=== PATIENT | female | born 1935 | race Two or more races ===

== ENCOUNTER 2021-03-11 12:44 | Emergency (ER) | payer OTHER ==
[~2021-03-11] VITALS: Ht 167.6 cm; Wt 59.9 kg
[2021-03-11] MEDS ORDERED: SODIUM CHLORIDE 0.9% 500 ML IV ONE (13:00)
[2021-03-11 14:28] LABS: Basophils # (auto) 0.1 10 ^3/uL (0-0.2); Basophils % (auto) 1.3 % (0.0-2.0); Eosinophils # (auto) 0.1 10 ^3/uL (0-0.8); Eosinophils % (auto) 1.3 % (0.0-7.0); Hematocrit 36.2 % (36.0-46.0); Hemoglobin 12.9 g/dL (12.2-16.2); Lymphocytes # (auto) 1.8 10 ^3/uL (0.4-5.4); Lymphocytes % (auto) 34.3 % (10.0-50.0); Mean Corpuscular Hemoglobin 31.6 pg (28.0-32.0); Mean Corpuscular Hgb Conc. 35.5 g/dL (32.0-36.0); Mean Corpuscular Volume 88.9 fL (80.0-100.0); Monocytes # (auto) 0.5 10 ^3/uL (0-1.3); Monocytes % (auto) 9.2 % (0.0-12.0); Neutrophils # (auto) 2.9 10 ^3/uL (1.6-8.6); Neutrophils % (auto) 53.9 % (37.0-80.0); Nucleated Red Blood Cells % 0.1 %; Platelet Count (auto) 261 10^3/uL (140-450); Red Blood Cells 4.07 10^6/uL (4.0-5.20); Red Cell Distribution Width 15.7 % (11.8-14.3); White Blood Cell 5.4 10^3/uL (4.4-10.8)
[2021-03-11 14:48] LABS: Albumin 3.4 g/dL (3.4-5.0); BUN/Creatinine Ratio 29.7; Calcium 8.6 mg/dL (8.5-10.1); Potassium 3.9 mmol/L (3.5-5.1)
[2021-03-11 14:51] LABS: Bilirubin, Total 0.4 mg/dL (0.2-1.0); Total Protein 7.8 g/dL (6.4-8.2)
[2021-03-11 19:59] VITALS: BP 136/71
== END 2021-03-11 22:32 | disposition hospice, inpatient (51) ==
LOC: ER 12:44 → EDBD 12:44 → ER 22:32
DX: R53.1 Weakness (principal); I10 Essential (primary) hypertension; R73.9 Hyperglycemia, unspecified; F41.9 Anxiety disorder, unspecified; R51.9 Headache, unspecified; E78.5 Hyperlipidemia, unspecified; Z90.49 Acquired absence of other specified parts of digestive tract
CPT/HCPCS: 36415; 70450; 80053; 84484; 85025; 85049; 93005; 96360; 96361

== ENCOUNTER 2021-09-23 17:17 | Emergency (ER) | payer MEDICARE, OTHER ==
[~2021-09-23] VITALS: Ht 170.2 cm; Wt 72.6 kg
[2021-09-24 11:38] VITALS: BP 127/75
[2021-09-24 13:21] LABS: Basophils # (auto) 0 10 ^3/uL (0-0.2); Basophils % (auto) 0.6 % (0.0-2.0); Eosinophils # (auto) 0 10 ^3/uL (0-0.8); Eosinophils % (auto) 0.4 % (0.0-7.0); Hematocrit 40.2 % (36.0-46.0); Hemoglobin 13.5 g/dL (12.2-16.2); Lymphocytes # (auto) 1.4 10 ^3/uL (0.4-5.4); Lymphocytes % (auto) 21.9 % (10.0-50.0); Mean Corpuscular Hemoglobin 31.4 pg (28.0-32.0); Mean Corpuscular Hgb Conc. 33.4 g/dL (32.0-36.0); Mean Corpuscular Volume 94.1 fL (80.0-100.0); Monocytes # (auto) 0.7 10 ^3/uL (0-1.3); Neutrophils # (auto) 4.4 10 ^3/uL (1.6-8.6); Neutrophils % (auto) 67.1 % (37.0-80.0); Red Blood Cells 4.28 10^6/uL (4.0-5.20); Red Cell Distribution Width 14.4 % (11.8-14.3); White Blood Cell 6.5 10^3/uL (4.4-10.8)
[2021-09-24 13:38] LABS: Albumin 4.1 g/dL (3.4-5.0); Calcium 9.2 mg/dL (8.5-10.1); Potassium 3.9 mmol/L (3.5-5.1)
[2021-09-24 13:44] LABS: Bilirubin, Total 0.6 mg/dL (0.2-1.0); Total Protein 8.7 g/dL (6.4-8.2)
[2021-09-24] MEDS ORDERED: CEPH-322 PO (14:58)
== END 2021-09-24 18:57 ==
LOC: EDBD 17:17 → ER 17:17 → EDUNIT# 17:17 → ER 09-24 18:57
DX: E11.621 Type 2 diabetes mellitus with foot ulcer (principal); L97.529 Non-pressure chronic ulcer of other part of left foot with unspecified severity; E78.5 Hyperlipidemia, unspecified; I10 Essential (primary) hypertension; Z90.49 Acquired absence of other specified parts of digestive tract; Z88.6 Allergy status to analgesic agent
CPT/HCPCS: 36415; 71045; 80053; 83880; 84484; 85025; 93005; 93970

== ENCOUNTER 2021-09-29 17:55 | Emergency (ER) | payer MEDICARE, OTHER ==
[~2021-09-29] VITALS: Ht 165.1 cm; Wt 54.9 kg
[~2021-09-29 17:55] MED LIST: CEPH-322 PO
[2021-09-29 20:41] LABS: Basophils # (auto) 0 10 ^3/uL (0-0.2); Basophils % (auto) 0.7 % (0.0-2.0); Eosinophils # (auto) 0 10 ^3/uL (0-0.8); Eosinophils % (auto) 0.3 % (0.0-7.0); Hematocrit 37.2 % (36.0-46.0); Hemoglobin 12.2 g/dL (12.2-16.2); Lymphocytes # (auto) 1.4 10 ^3/uL (0.4-5.4); Lymphocytes % (auto) 37.3 % (10.0-50.0); Mean Corpuscular Hemoglobin 30.9 pg (28.0-32.0); Mean Corpuscular Hgb Conc. 32.8 g/dL (32.0-36.0); Monocytes # (auto) 0.7 10 ^3/uL (0-1.3); Monocytes % (auto) 18.5 % (0.0-12.0); Neutrophils # (auto) 1.6 10 ^3/uL (1.6-8.6); Neutrophils % (auto) 43.2 % (37.0-80.0); Nucleated Red Blood Cells % 0.2 %; Red Blood Cells 3.95 10^6/uL (4.0-5.20); Red Cell Distribution Width 14.1 % (11.8-14.3); White Blood Cell 3.8 10^3/uL (4.4-10.8)
[2021-09-29 21:02] LABS: Albumin 3.1 g/dL (3.4-5.0); Calcium 8.2 mg/dL (8.5-10.1); Magnesium 2.4 mg/dL (1.6-2.6); Potassium 3.5 mmol/L (3.5-5.1)
[2021-09-29 21:09] LABS: BUN/Creatinine Ratio 14.1; Bilirubin, Total 0.3 mg/dL (0.2-1.0); Total Protein 6.7 g/dL (6.4-8.2)
[2021-09-30 02:19] LABS: Urine Bacteria NONE SEEN /hpf (None Seen); Urine Blood Negative /uL (Negative); Urine Specific Gravity 1.009 (1.001-1.035); Urine WBC 1 /hpf (0 - 5)
[2021-09-30 03:51] VITALS: BP 177/77
[2021-09-30] MEDS ORDERED: ALUM & MAG HYDROX-SIMETH LIQ(MAALOX) 30 ML PO ONE (04:30)
== END 2021-09-30 10:38 | disposition home or self-care (01) ==
LOC: ER 17:55 → EDUNIT# 17:55 → EDBD 17:55 → EDSEX 17:55 → ER 09-30 10:38
DX: R50.9 Fever, unspecified (principal); B34.9 Viral infection, unspecified; E11.9 Type 2 diabetes mellitus without complications; E78.5 Hyperlipidemia, unspecified; I10 Essential (primary) hypertension; Z20.822 Contact with and (suspected) exposure to COVID-19; Z90.49 Acquired absence of other specified parts of digestive tract
CPT/HCPCS: 36415; 71045; 80053; 81001; 83605; 83735; 84484; 85025; 87040; 87426; 93005

== ENCOUNTER 2022-03-12 07:20 | Day surgery (SDC) | payer MEDICARE, MEDICAID ==
[2022-03-11 13:16] LABS: Basophils # (auto) 0.1 10 ^3/uL (0-0.2); Basophils % (auto) 0.8 % (0.0-2.0); Eosinophils # (auto) 0.1 10 ^3/uL (0-0.8); Eosinophils % (auto) 1.4 % (0.0-7.0); Hematocrit 37.7 % (36.0-46.0); Hemoglobin 12.3 g/dL (12.2-16.2); Lymphocytes # (auto) 2.3 10 ^3/uL (0.4-5.4); Lymphocytes % (auto) 34.9 % (10.0-50.0); Mean Corpuscular Hemoglobin 28.7 pg (28.0-32.0); Mean Corpuscular Hgb Conc. 32.5 g/dL (32.0-36.0); Mean Corpuscular Volume 88.2 fL (80.0-100.0); Monocytes # (auto) 0.8 10 ^3/uL (0-1.3); Monocytes % (auto) 12.4 % (0.0-12.0); Neutrophils # (auto) 3.4 10 ^3/uL (1.6-8.6); Neutrophils % (auto) 50.5 % (37.0-80.0); Red Blood Cells 4.28 10^6/uL (4.0-5.20); Red Cell Distribution Width 15.8 % (11.8-14.3); Urine Bacteria NONE SEEN /hpf (None Seen); Urine Blood Negative /uL (Negative); Urine Hyaline Cast FEW /lpf (0 - 2); Urine Mucus FEW (None Seen); Urine Specific Gravity 1.032 (1.001-1.035); Urine WBC 3 /hpf (0 - 5); White Blood Cell 6.7 10^3/uL (4.4-10.8)
[2022-03-11 13:25] LABS: INR 1.14 (0.9-1.15); Partial Thromboplastin Time 26.2 sec (23.6-33.0)
[2022-03-11 13:36] LABS: Albumin 3.5 g/dL (3.4-5.0); Calcium 8.7 mg/dL (8.5-10.1); Potassium 4.2 mmol/L (3.5-5.1)
[2022-03-11 13:39] LABS: Bilirubin, Total 0.4 mg/dL (0.2-1.0); Total Protein 8.3 g/dL (6.4-8.2)
[~2022-03-12] VITALS: Ht 165.1 cm; Wt 54.4 kg
[2022-03-12] MEDS ORDERED: ceFAZolin 1GM/50ML 100 ML IV ONE (09:22)
[2022-03-12] MEDS ORDERED: ROPIVACAINE 0.5% (5MG/ML) 20ML AMPULE IJ ONE (09:49)
[2022-03-12] MEDS ORDERED: ceFAZolin 1GM VL ONE (09:49)
[2022-03-12] MEDS ORDERED: fentaNYL CITRATE 100 MCG/2 ML VL ONE (09:51)
[2022-03-12] MEDS ORDERED: MIDAZOLAM HCL 2MG/2ML 2ml VIAL (1mg/ml) ONE (09:51)
[2022-03-12] MEDS ORDERED: MEPERIDINE HCL (25 MG/ML) 1ML VIAL ONE (09:51)
[2022-03-12] MEDS ORDERED: ONDANSETRON HCL 4 MG/2 ML VIAL IV PRN (10:00)
[2022-03-12] MEDS ORDERED: HYDROmorphone HCL 2 MG/ML VL/or syr IV PRN (10:00)
[2022-03-12] MEDS ORDERED: MORPHINE SULFATE 4 MG/ML SYR/VIAL IV PRN (10:00)
[2022-03-12] MEDS ORDERED: MIDAZOLAM HCL 2MG/2ML 2ml VIAL (1mg/ml) IV PRN (10:00)
[2022-03-12] MEDS ORDERED: ePHEDrine SULFATE 50 MG/ML AMP IV PRN (10:00)
[2022-03-12] MEDS ORDERED: LABETALOL HCL 5 MG/ML 4ML SYRINGE IV PRN (10:00)
[2022-03-12] MEDS ORDERED: hydrALAZINE HCL 20 MG/ML VL IV PRN (10:00)
[2022-03-12] MEDS ORDERED: DexAMETHasone SOD PHOS 10MG/1ML VIAL INJ ONE (10:10)
[2022-03-12] MEDS ORDERED: PROPOFOL 10 MG/ML 20 ML IV ONE (10:19)
[2022-03-12 10:50] VITALS: BP 141/73
== END 2022-03-12 11:15 | disposition home or self-care (01) ==
LOC: SUR 07:20
PROVIDERS: ATTEND Podiatrist Foot & Ankle Surgery
DX: M20.62 Acquired deformities of toe(s), unspecified, left foot (principal); M12.272 Villonodular synovitis (pigmented), left ankle and foot; M79.89 Other specified soft tissue disorders; I10 Essential (primary) hypertension; I25.10 Atherosclerotic heart disease of native coronary artery without angina pectoris; F32.A Depression, unspecified; F41.9 Anxiety disorder, unspecified; Z98.41 Cataract extraction status, right eye; Z98.890 Other specified postprocedural states; Z20.822 Contact with and (suspected) exposure to COVID-19; Z88.5 Allergy status to narcotic agent
CPT/HCPCS: 28825; 36415; 80053; 81001; 85025; 85610; 85730; 88305; 88311; J0690; J1100; J2175; J2250; J2704; J2795; J3010; U0003

== ENCOUNTER 2022-03-23 11:30 | Inpatient (IN) | payer MEDICARE, MEDICAID ==
[~2022-03-23] VITALS: Ht 160 cm; Wt 57.9 kg
[2022-03-23 13:09] LABS: Basophils # (auto) 0.1 10 ^3/uL (0-0.2); Basophils % (auto) 0.9 % (0.0-2.0); Eosinophils # (auto) 0.1 10 ^3/uL (0-0.8); Eosinophils % (auto) 1.9 % (0.0-7.0); Hematocrit 37.8 % (36.0-46.0); Hemoglobin 12.3 g/dL (12.2-16.2); Lymphocytes # (auto) 1.5 10 ^3/uL (0.4-5.4); Lymphocytes % (auto) 23.6 % (10.0-50.0); Mean Corpuscular Hemoglobin 28.8 pg (28.0-32.0); Mean Corpuscular Hgb Conc. 32.6 g/dL (32.0-36.0); Mean Corpuscular Volume 88.3 fL (80.0-100.0); Monocytes # (auto) 0.7 10 ^3/uL (0-1.3); Monocytes % (auto) 11.4 % (0.0-12.0); Neutrophils # (auto) 3.8 10 ^3/uL (1.6-8.6); Neutrophils % (auto) 62.2 % (37.0-80.0); Red Blood Cells 4.28 10^6/uL (4.0-5.20); Red Cell Distribution Width 15.9 % (11.8-14.3); White Blood Cell 6.2 10^3/uL (4.4-10.8)
[2022-03-23 13:28] LABS: Albumin 3.5 g/dL (3.4-5.0); Calcium 8.5 mg/dL (8.5-10.1)
[2022-03-23 13:30] LABS: BUN/Creatinine Ratio 25.8
[2022-03-23 13:33] LABS: Bilirubin, Total 0.4 mg/dL (0.2-1.0); Total Protein 7.9 g/dL (6.4-8.2)
[2022-03-23] MEDS ORDERED: DOCUSATE SOD 100 MG CAP PO PRN (16:15)
[2022-03-23] MEDS ORDERED: ONDANSETRON HCL 4 MG/2 ML VIAL IV PRN (16:15)
[2022-03-23] MEDS: SODIUM CHLOR 0.9% PF (SALINE LOCK) 10ML VIAL/SYR IV SCH (23:19)
[2022-03-24] MEDS ORDERED: HYDROcodone-ACET 5/325MG TAB PO ONE (06:00)
[2022-03-24] MEDS: SODIUM CHLOR 0.9% PF (SALINE LOCK) 10ML VIAL/SYR IV SCH ×3 (06:04→21:03)
[2022-03-24 10:39] LABS: Urine Bacteria NONE SEEN /hpf (None Seen); Urine Blood Negative /uL (Negative); Urine Mucus FEW (None Seen); Urine Specific Gravity 1.019 (1.001-1.035); Urine WBC 1 /hpf (0 - 5)
[2022-03-24] MEDS: ACETAMINOPHEN 325 MG TAB PO PRN ×2 (10:40→20:26)
[2022-03-24] MEDS ORDERED: VENL1TAB99 PO (16:42)
[2022-03-24] MEDS ORDERED: ALEN70TA74 PO (16:42)
[2022-03-24] MEDS ORDERED: SIMV-8 PO (16:42)
[2022-03-24] MEDS ORDERED: AMLO-496 PO (16:42)
[2022-03-24] MEDS ORDERED: METO25TA93 PO (16:42)
[2022-03-24] MEDS ORDERED: OMEP-445 (16:42)
[2022-03-24] MEDS ORDERED: MULT1TAB95 PO (16:47)
[2022-03-24] MEDS ORDERED: DOCU1CAP PO (16:49)
[2022-03-24] MEDS ORDERED: HYDR-3682 PO (16:50)
[2022-03-24] MEDS ORDERED: HYDR-4902 PO (16:51)
[2022-03-24] MEDS ORDERED: ACET1CAP14 PO (16:52)
[2022-03-24 17:29] VITALS: BP 131/93
[2022-03-24 20:00] VITALS: BP 139/61
[2022-03-24 22:00] VITALS: BP 139/61
[2022-03-25 05:00] VITALS: BP 147/68
[2022-03-25] MEDS: SODIUM CHLOR 0.9% PF (SALINE LOCK) 10ML VIAL/SYR IV SCH ×3 (05:32→21:29)
[2022-03-25 09:00] VITALS: BP 146/79
[2022-03-25] MEDS: ACETAMINOPHEN 325 MG TAB PO PRN (11:14)
[2022-03-25 13:00] VITALS: BP 144/97
[2022-03-25 13:39] LABS: Basophils # (auto) 0 10 ^3/uL (0-0.2); Basophils % (auto) 0.7 % (0.0-2.0); Eosinophils # (auto) 0.1 10 ^3/uL (0-0.8); Eosinophils % (auto) 2.1 % (0.0-7.0); Hematocrit 37.6 % (36.0-46.0); Lymphocytes # (auto) 1.3 10 ^3/uL (0.4-5.4); Lymphocytes % (auto) 23.9 % (10.0-50.0); Mean Corpuscular Hemoglobin 28.3 pg (28.0-32.0); Mean Corpuscular Volume 88.4 fL (80.0-100.0); Monocytes # (auto) 0.5 10 ^3/uL (0-1.3); Neutrophils # (auto) 3.5 10 ^3/uL (1.6-8.6); Neutrophils % (auto) 64.3 % (37.0-80.0); Red Blood Cells 4.25 10^6/uL (4.0-5.20); Red Cell Distribution Width 16.3 % (11.8-14.3); White Blood Cell 5.5 10^3/uL (4.4-10.8)
[2022-03-25 13:55] LABS: Calcium 8.9 mg/dL (8.5-10.1); Potassium 4.2 mmol/L (3.5-5.1)
[2022-03-25 13:57] LABS: BUN/Creatinine Ratio 26.2
[2022-03-25] MEDS ORDERED: PATIENTS OWN MEDICATION (Hydroxyzine Hcl 1 TAB) PO SCH (14:00)
[2022-03-25 14:13] LABS: Bilirubin, Total 0.4 mg/dL (0.2-1.0); CRP High Sensitivity 0.34 mg/dL (< 0.3); Phosphorus 3.4 mg/dL (2.5-4.90)
[2022-03-25] MEDS: HYDROcodone-ACET 5/325MG TAB PO PRN (16:02)
[2022-03-25] MEDS: hydrOXYzine 25 MG TAB or CAP PO SCH ×2 (16:02→21:29)
[2022-03-25 16:44] VITALS: BP 109/64
[2022-03-25 20:00] VITALS: BP 112/64
[2022-03-25] MEDS: ATORVASTATIN 20 MG TAB PO SCH (21:29)
[2022-03-25] MEDS: DOCUSATE SOD 100 MG CAP PO SCH (21:29)
[2022-03-25] MEDS: METOPROLOL TARTRATE 25 MG TAB PO SCH (21:46)
[2022-03-25 22:00] VITALS: BP 112/64
[2022-03-26 05:00] VITALS: BP 135/72
[2022-03-26] MEDS: SODIUM CHLOR 0.9% PF (SALINE LOCK) 10ML VIAL/SYR IV SCH ×3 (05:57→22:04)
[2022-03-26] MEDS: hydrOXYzine 25 MG TAB or CAP PO SCH ×3 (05:57→22:05)
[2022-03-26] MEDS: ONDANSETRON HCL 4 MG/2 ML VIAL IV PRN ×3 (08:36→22:54)
[2022-03-26 08:43] VITALS: BP 108/75
[2022-03-26] MEDS: DOCUSATE SOD 100 MG CAP PO SCH (09:52)
[2022-03-26] MEDS: HYDROcodone-ACET 5/325MG TAB PO PRN ×3 (09:52→22:54)
[2022-03-26] MEDS: METOPROLOL TARTRATE 25 MG TAB PO SCH ×2 (09:53→22:04)
[2022-03-26] MEDS: MULTIPLE VITAMIN TAB PO SCH (09:53)
[2022-03-26] MEDS: amLODIPine BESYLATE 5 MG TAB PO SCH (09:53)
[2022-03-26] MEDS ORDERED: PATIENTS OWN MEDICATION (Amlodipine Besylate 1 TAB) PO SCH (10:00)
[2022-03-26 12:38] VITALS: BP 163/79
[2022-03-26] MEDS ORDERED: MAGNESIUM CITRATE SOLUTION 300 ML BTL PO ONE (14:30)
[2022-03-26] MEDS ORDERED: LACTULOSE 20Gm/30ML SOLN PO PRN (14:30)
[2022-03-26 16:26] VITALS: BP 93/69
[2022-03-26 22:00] VITALS: BP 130/69
[2022-03-26] MEDS: ATORVASTATIN 20 MG TAB PO SCH (22:04)
[2022-03-27] VITALS (7 sets, daily range): BP systolic 105–138; BP diastolic 54–78
[2022-03-27] MEDS: ONDANSETRON HCL 4 MG/2 ML VIAL IV PRN ×3 (03:31→18:22)
[2022-03-27] MEDS: SODIUM CHLOR 0.9% PF (SALINE LOCK) 10ML VIAL/SYR IV SCH ×3 (05:56→21:52)
[2022-03-27] MEDS: hydrOXYzine 25 MG TAB or CAP PO SCH ×3 (05:56→21:54)
[2022-03-27] MEDS: MAGNESIUM OXIDE 400 MG TAB PO SCH (09:51)
[2022-03-27] MEDS: METOPROLOL TARTRATE 25 MG TAB PO SCH ×2 (09:51→21:53)
[2022-03-27] MEDS: MULTIPLE VITAMIN TAB PO SCH (09:51)
[2022-03-27] MEDS: amLODIPine BESYLATE 5 MG TAB PO SCH (09:52)
[2022-03-27] MEDS: HYDROcodone-ACET 5/325MG TAB PO PRN (09:53)
[2022-03-27] MEDS ORDERED: MECLIZINE HCL 25 MG TAB PO PRN (12:00)
[2022-03-27] MEDS ORDERED: IOHEXOL 300 MG/ML 100ML BOTTLE IJ ONE (13:01)
[2022-03-27] MEDS: SODIUM CHLORIDE 0.9% 1,000 ML IV SCH ×2 (13:03→18:21)
[2022-03-27] MEDS: SUCRALFATE 1 GM/10 ML ORAL SUSP PO SCH ×3 (16:50→21:53)
[2022-03-27] MEDS: PANTOPRAZOLE 40 MG TAB PO SCH ×2 (16:51→21:54)
[2022-03-27 16:52] LABS: INR 1.12 (0.9-1.15)
[2022-03-27] MEDS: MECLIZINE HCL 25 MG TAB PO SCH (21:52)
[2022-03-27] MEDS: ATORVASTATIN 20 MG TAB PO SCH (21:53)
[2022-03-28] VITALS (7 sets, daily range): BP systolic 123–148; BP diastolic 44–70
[2022-03-28] MEDS: SODIUM CHLORIDE 0.9% 1,000 ML IV SCH ×3 (02:00→18:47)
[2022-03-28] MEDS: SODIUM CHLOR 0.9% PF (SALINE LOCK) 10ML VIAL/SYR IV SCH ×3 (05:37→22:43)
[2022-03-28] MEDS: MECLIZINE HCL 25 MG TAB PO SCH ×3 (05:48→22:46)
[2022-03-28] MEDS: hydrOXYzine 25 MG TAB or CAP PO SCH ×3 (05:49→22:48)
[2022-03-28] MEDS: SUCRALFATE 1 GM/10 ML ORAL SUSP PO SCH ×4 (06:17→22:46)
[2022-03-28 06:41] LABS: Basophils # (auto) 0 10 ^3/uL (0-0.2); Basophils % (auto) 0.7 % (0.0-2.0); Eosinophils # (auto) 0.2 10 ^3/uL (0-0.8); Eosinophils % (auto) 3.1 % (0.0-7.0); Hematocrit 34.6 % (36.0-46.0); Hemoglobin 11.4 g/dL (12.2-16.2); Lymphocytes # (auto) 1.8 10 ^3/uL (0.4-5.4); Lymphocytes % (auto) 27.4 % (10.0-50.0); Mean Corpuscular Hemoglobin 29.2 pg (28.0-32.0); Mean Corpuscular Hgb Conc. 32.9 g/dL (32.0-36.0); Mean Corpuscular Volume 88.5 fL (80.0-100.0); Monocytes # (auto) 0.7 10 ^3/uL (0-1.3); Monocytes % (auto) 10.3 % (0.0-12.0); Neutrophils # (auto) 3.8 10 ^3/uL (1.6-8.6); Neutrophils % (auto) 58.5 % (37.0-80.0); Red Blood Cells 3.91 10^6/uL (4.0-5.20); Red Cell Distribution Width 16.2 % (11.8-14.3); White Blood Cell 6.5 10^3/uL (4.4-10.8)
[2022-03-28 06:56] LABS: Albumin 2.8 g/dL (3.4-5.0); Calcium 8.4 mg/dL (8.5-10.1); Magnesium 2.7 mg/dL (1.6-2.6); Potassium 5.1 mmol/L (3.5-5.1)
[2022-03-28 07:00] LABS: BUN/Creatinine Ratio 33.3; Bilirubin, Total 0.5 mg/dL (0.2-1.0); Total Protein 6.8 g/dL (6.4-8.2)
[2022-03-28] MEDS ORDERED: ceFAZolin 1GM/50ML 100 ML IV ONE (08:21)
[2022-03-28] MEDS ORDERED: BENZOCAINE (DENTAL) 20 % SPRAY 60ML MT ONE (08:38)
[2022-03-28] MEDS ORDERED: ONDANSETRON HCL 4 MG/2 ML VIAL ONE (08:47)
[2022-03-28] MEDS ORDERED: SODIUM CHLORIDE LOCK 10 ML ONE (08:47)
[2022-03-28] MEDS ORDERED: PROPOFOL 10 MG/ML 20 ML IV ONE (08:47)
[2022-03-28] MEDS ORDERED: fentaNYL CITRATE 100 MCG/2 ML VL ONE (08:47)
[2022-03-28] MEDS ORDERED: MIDAZOLAM HCL 2MG/2ML 2ml VIAL (1mg/ml) ONE (08:47)
[2022-03-28] MEDS ORDERED: diphenhdrAMINE HCL 25 MG CAP PO PRN (11:30)
[2022-03-28] MEDS: METOPROLOL TARTRATE 25 MG TAB PO SCH ×2 (11:36→23:06)
[2022-03-28] MEDS: MULTIPLE VITAMIN TAB PO SCH (11:37)
[2022-03-28] MEDS: MAGNESIUM OXIDE 400 MG TAB PO SCH (11:37)
[2022-03-28] MEDS: amLODIPine BESYLATE 5 MG TAB PO SCH (11:38)
[2022-03-28] MEDS: PANTOPRAZOLE 40 MG TAB PO SCH ×2 (11:38→22:47)
[2022-03-28] MEDS: ONDANSETRON HCL 4 MG/2 ML VIAL IV PRN ×2 (11:42→20:37)
[2022-03-28] MEDS: ACETAMINOPHEN 650 mg PER 20.3 mL UD GT PRN (20:37)
[2022-03-28] MEDS: ATORVASTATIN 20 MG TAB PO SCH (22:46)
[2022-03-29 04:46] VITALS: BP 141/54
[2022-03-29] MEDS: MECLIZINE HCL 25 MG TAB PO SCH ×2 (06:28→13:36)
[2022-03-29] MEDS: SODIUM CHLORIDE 0.9% 1,000 ML IV SCH ×2 (06:28→10:54)
[2022-03-29] MEDS: SODIUM CHLOR 0.9% PF (SALINE LOCK) 10ML VIAL/SYR IV SCH ×2 (06:28→14:59)
[2022-03-29] MEDS: hydrOXYzine 25 MG TAB or CAP PO SCH ×2 (06:35→13:36)
[2022-03-29] MEDS: SUCRALFATE 1 GM/10 ML ORAL SUSP PO SCH ×2 (06:35→10:57)
[2022-03-29] MEDS: ACETAMINOPHEN 650 mg PER 20.3 mL UD GT PRN ×2 (06:51→17:45)
[2022-03-29 09:00] VITALS: BP 123/55
[2022-03-29] MEDS: amLODIPine BESYLATE 5 MG TAB PO SCH (10:00)
[2022-03-29] MEDS: MAGNESIUM OXIDE 400 MG TAB PO SCH (10:55)
[2022-03-29] MEDS: METOPROLOL TARTRATE 25 MG TAB PO SCH (10:55)
[2022-03-29] MEDS: PANTOPRAZOLE 40 MG TAB PO SCH (10:56)
[2022-03-29] MEDS: MULTIPLE VITAMIN TAB PO SCH (10:56)
[2022-03-29 12:59] VITALS: BP 129/55
[2022-03-30] MEDS ORDERED: ALENDRONATE SODIUM 10 MG TAB PO SCH (12:00)
== END 2022-03-29 18:10 | DRG 914 ==
LOC: ER 11:30 → EDBD 11:30 → TELE 16:15 → TELE-CENTR 03-24 15:15
PROVIDERS: ADMIT Internal Medicine; ATTEND Internal Medicine
PROC: 4A10X4Z Monitoring of Central Nervous Electrical Activity, External Approach (ICD-10-PCS; principal; 2022-03-25)
PROC: 0DB68ZX Excision of Stomach, Via Natural or Artificial Opening Endoscopic, Diagnostic (ICD-10-PCS; 2022-03-28)
DX: S09.90XA Unspecified injury of head, initial encounter (principal); W06.XXXA Fall from bed, initial encounter; I10 Essential (primary) hypertension; M19.90 Unspecified osteoarthritis, unspecified site; E78.5 Hyperlipidemia, unspecified; F17.200 Nicotine dependence, unspecified, uncomplicated; F41.9 Anxiety disorder, unspecified; K59.00 Constipation, unspecified; M40.209 Unspecified kyphosis, site unspecified; Z20.822 Contact with and (suspected) exposure to COVID-19; Z96.642 Presence of left artificial hip joint; K29.70 Gastritis, unspecified, without bleeding; T18.2XXA Foreign body in stomach, initial encounter; X58.XXXA Exposure to other specified factors, initial encounter; K31.84 Gastroparesis; Z88.1 Allergy status to other antibiotic agents; Z88.5 Allergy status to narcotic agent; Z90.49 Acquired absence of other specified parts of digestive tract; Y93.89 Activity, other specified; Y99.8 Other external cause status; Y92.003 Bedroom of unspecified non-institutional (private) residence as the place of occurrence of the external cause; E11.9 Type 2 diabetes mellitus without complications
CPT/HCPCS: 36415; 70450; 70551; 71250; 72192; 74177; 74181; 76536; 80053; 81001; 82728; 83735; 84100; 84443; 84484; 85025; 85379; 85610; 86141; 87081; 87804; 93005; 95819; 96374; 97110; 97116; 97163; 97530; G0378; J0690; J2250; J2405; J2704

== ENCOUNTER → 2023-06-25 | Outpatient (CLI) | payer MEDICARE ==
[~2023-06-25] MED LIST changes: +ACET1CAP14 PO; +ALEN70TA74 PO; +AMLO1TAB23 PO; -CEPH-322 PO; +CEPH250C PO; +DOCU-216 PO; +HYDR-3682 PO; +HYDR-4902 PO; +METO25TA93 PO; +MULT1TAB95 PO; +OMEP-445; +SIMV20TA20 PO; +VENL1TAB99 PO
[2023-06-25 14:59] LABS: Basophils # (auto) 0.1 10 ^3/uL (0-0.2); Basophils % (auto) 0.9 % (0.0-2.0); Eosinophils # (auto) 0.2 10 ^3/uL (0-0.8); Eosinophils % (auto) 2.6 % (0.0-7.0); Hematocrit 35.1 % (36.0-46.0); Hemoglobin 11.6 g/dL (12.2-16.2); Lymphocytes # (auto) 1.4 10 ^3/uL (0.4-5.4); Lymphocytes % (auto) 23.9 % (10.0-50.0); Mean Corpuscular Hemoglobin 28.9 pg (28.0-32.0); Mean Corpuscular Hgb Conc. 33.1 g/dL (32.0-36.0); Mean Corpuscular Volume 87.4 fL (80.0-100.0); Monocytes # (auto) 0.7 10 ^3/uL (0-1.3); Monocytes % (auto) 12.2 % (0.0-12.0); Neutrophils # (auto) 3.6 10 ^3/uL (1.6-8.6); Neutrophils % (auto) 60.4 % (37.0-80.0); Nucleated Red Blood Cells % 0.1 %; Red Blood Cells 4.02 10^6/uL (4.0-5.20); Red Cell Distribution Width 16.8 % (11.8-14.3); White Blood Cell 5.9 10^3/uL (4.4-10.8)
[2023-06-25 15:01] LABS: Alanine Aminotransferase 19 U/L (7-40); Albumin 4.1 g/dL (3.2-4.8); Alkaline Phosphatase 88 U/L (46-116); Anion Gap 5 (5-15); Aspartate Aminotransferase 16 U/L (13-40); BUN/Creatinine Ratio 18.3 (10.0-20.0); Blood Urea Nitrogen 13 mg/dL (9-23); Calcium 9.3 mg/dL (8.5-10.1); Carbon Dioxide 27 mmol/L (20-30); Chloride 107 mmol/L (98-107); Glucose 89 mg/dL (74-106); LDL Cholesterol 48 mg/dL (< 100); Potassium 4.5 mmol/L (3.5-5.1); Sodium 139 mmol/L (136-145); Triglycerides 65 mg/dL (< 150)
[2023-06-25 15:02] LABS: Bilirubin, Total 0.8 mg/dL (0.2-1.0); Cholesterol 122 mg/dL (< 200); HDL Cholesterol 57 mg/dL (40-59)
[2023-06-25 15:04] LABS: Folate (Folic Acid) 17.77 ng/mL (>5.38)
[2023-06-25 15:13] LABS: Urine Bacteria NONE SEEN /hpf (None Seen); Urine Blood Negative /uL (Negative); Urine Clarity Clear (Clear); Urine Color Yellow (Yellow); Urine Protein, UAD Negative (Negative); Urine Specific Gravity 1.018 (1.001-1.035); Urine Urobilinogen Normal (Negative); Urine WBC 1 /hpf (0 - 5); Urine pH 5.5 (5.0-8.0)
[2023-06-25 15:16] LABS: Magnesium 1.8 mg/dL (1.6-2.6); Uric Acid 4.5 mg/dL (3.1-7.8)
== END | disposition home or self-care (01) ==
LOC: LAB 14:35
PROVIDERS: ATTEND Internal Medicine
DX: E61.2 Magnesium deficiency (principal); E79.0 Hyperuricemia without signs of inflammatory arthritis and tophaceous disease; R82.998 Other abnormal findings in urine; E55.9 Vitamin D deficiency, unspecified; D51.9 Vitamin B12 deficiency anemia, unspecified; R82.79 Other abnormal findings on microbiological examination of urine; R94.6 Abnormal results of thyroid function studies; E78.49 Other hyperlipidemia; R68.89 Other general symptoms and signs; R78.89 Finding of other specified substances, not normally found in blood; R73.09 Other abnormal glucose
CPT/HCPCS: 36415; 80053; 80061; 81001; 82306; 82607; 82746; 83036; 83735; 84443; 84550; 85025; 87086